=== PATIENT | female | born 1965 | race Asian ===

== ENCOUNTER 2025-04-12 16:42 | Emergency (ER) | payer MEDICAID ==
[~2025-04-12] VITALS: Ht 160 cm; Wt 55.8 kg
[2025-04-12] MEDS ORDERED: ACETAMINOPHEN ES 500 MG TABLET ONE (20:05)
[2025-04-12] MEDS ORDERED: CYCLOBENZAPRINE 10 MG TABLET ONE (20:05)
[2025-04-12] MEDS: CYCLOBENZAPRINE 10 MG TABLET PO ONE (20:08)
[2025-04-12] MEDS: ACETAMINOPHEN ES 500 MG TABLET PO ONE (20:08)
[2025-04-12] MEDS ORDERED: IBUP-1490 PO (20:36)
[2025-04-12] MEDS ORDERED: CYCL10TA9 PO (20:36)
[2025-04-12] MEDS ORDERED: ACET-2605 PO (20:36)
[2025-04-12 20:44] VITALS: BP 117/69; TEMP 98.2; O2SAT 96
== END 2025-04-12 20:44 | disposition home or self-care (01) ==
LOC: ER 16:49
DX: R51.9 Headache, unspecified (principal); M62.838 Other muscle spasm; Z88.0 Allergy status to penicillin; V43.02XA Car driver injured in collision with other type car in nontraffic accident, initial encounter; Y93.89 Activity, other specified; Y92.415 Exit ramp or entrance ramp of street or highway as the place of occurrence of the external cause; Y99.8 Other external cause status
CPT/HCPCS: 70450-TC